=== PATIENT | male | born 1985 | race Two or more races ===

== ENCOUNTER 2018-09-21 21:54 | Emergency (ER) | payer OTHER ==
[~2018-09-21] VITALS: Ht 170.2 cm; Wt 95.2 kg
[~2018-09-21 21:54] MED LIST: AMOX500 PO; CYCL10 PO; ERYT.5TO OU; HYDACE5 PO; IBUP800 PO; NAPR550 PO; OXYACE5T PO; SULTRIDS PO
== END 2018-09-22 00:55 | disposition home or self-care (01) ==
LOC: ER 21:54
DX: T18.198A Other foreign object in esophagus causing other injury, initial encounter (principal); Z79.899 Other long term (current) drug therapy
CPT/HCPCS: 99283

== ENCOUNTER 2022-09-08 08:10 | Emergency (ER) | payer OTHER ==
[~2022-09-08] VITALS: Ht 170.2 cm; Wt 77.1 kg
[2022-09-08 08:58] VITALS: BP 113/78
== END 2022-09-08 11:10 | disposition home or self-care (01) ==
LOC: ER 08:10
DX: S81.012A Laceration without foreign body, left knee, initial encounter (principal); R07.81 Pleurodynia; Z23 Encounter for immunization; V29.99XA Rider (driver) (passenger) of other motorcycle injured in unspecified traffic accident, initial encounter
CPT/HCPCS: 71101; 73562-LT; 90714; A9270; J1885